=== PATIENT | female | born 1995 | race African-American/Black ===

== ENCOUNTER 2017-06-27 19:07 | Emergency (ER) | payer BC ==
[~2017-06-27] VITALS: Ht 167.6 cm; Wt 56.7 kg
--- NOTE | ~2017-06-27 | CR263 ---
[facility] A Service of [facility] & [facility] [place] RADIOLOGY TEXT RESULTS PATIENT: ELIE MACIAS LOCATION: CFTX : [birth year] UNIT #: [id number] AGE: [address]: ALEXIS MAGALLANES APRN SEX: F ORDER DR: [id number] [facility] [address] [place], [place] [address] [id number] E MR#: [id number] Acc #: [id number] NAME: ELIE MACIAS : 1995 SEX: F STUDY DATE/TIME: 06/27/2017 20:34 UNIT: [facility] ROOM: STUDY DESCRIPTION: CR Toe 2 Views Great Rt Attending Physician: Alexis Magallanes Aprn Ordering Physician: Alexis Magallanes Aprn Primary Care Physician: No Primary Care Physician MEDICAL IMAGING REPORT This report is preliminary unless electronic signature is present EXAM Right great toe, 3 views. COMPARISON 21-year-old female with pain and swelling of the right great toe after falling in the shower today. FINDINGS There is an oblique intraarticular fracture of the first distal phalanx with minimal displacement. There is no dislocation. IMPRESSION Oblique minimally-displaced acute intraarticular fracture of the first distal phalanx. No dislocation. Dictated by... Aravind Pineda M.D. THIS IS AN ELECTRONICALLY VERIFIED REPORT Aravind Pineda M.D. at 07/03/2017 9:32 AM BLM/gz TD: 06/28/2017 08:47 JOB #: [id number] MEDICAL IMAGING REPORT Page 1 of 1 COPY
[~2017-06-27 19:07] MED LIST: DIFLUCAN PO; FERRO-TIME325 MG PO; FLAGYL PO
== END 2017-06-27 22:44 | disposition home or self-care (01) ==
LOC: CED 19:07 → CFTX 19:07
DX: S92.421A Displaced fracture of distal phalanx of right great toe, initial encounter for closed fracture (principal); W18.2XXA Fall in (into) shower or empty bathtub, initial encounter; Y93.89 Activity, other specified; Y92.009 Unspecified place in unspecified non-institutional (private) residence as the place of occurrence of the external cause; Z79.899 Other long term (current) drug therapy
CPT/HCPCS: 29540; 73660; 99283